=== PATIENT | female | born 1955 | race Caucasian/White ===

== ENCOUNTER 2017-12-05 14:32 | Emergency (ER) | payer OTHER ==
[~2017-12-05] VITALS: Ht 165.1 cm; Wt 83.0 kg
[2017-12-05 15:49] VITALS: BP 104/69
== END 2017-12-05 15:49 | disposition home or self-care (01) ==
LOC: ED 14:32
DX: S52.501A Unspecified fracture of the lower end of right radius, initial encounter for closed fracture (principal); S52.611A Displaced fracture of right ulna styloid process, initial encounter for closed fracture; E03.9 Hypothyroidism, unspecified; Z88.0 Allergy status to penicillin; W01.10XA Fall on same level from slipping, tripping and stumbling with subsequent striking against unspecified object, initial encounter; Y93.89 Activity, other specified; Y92.89 Other specified places as the place of occurrence of the external cause; Y99.8 Other external cause status
CPT/HCPCS: Q0092

== ENCOUNTER 2019-09-11 10:48 | Emergency (ER) | payer OTHER ==
[~2019-09-11] VITALS: Ht 160 cm; Wt 78.0 kg
[2019-09-11 10:50] VITALS: BP 140/65; Ht 160 cm; Wt 78.0 kg
== END 2019-09-11 11:53 | disposition home or self-care (01) ==
LOC: ED 10:48
DX: M75.81 Other shoulder lesions, right shoulder (principal); Z88.0 Allergy status to penicillin; E03.9 Hypothyroidism, unspecified
CPT/HCPCS: Q0092